=== PATIENT | female | born 1995 | race Caucasian/White ===

== ENCOUNTER 2021-07-06 17:35 | Emergency (ER) | payer BC ==
[~2021-07-06] VITALS: Ht 180.3 cm; Wt 103.2 kg
[2021-07-06 17:43] VITALS: TEMP 97.7
[2021-07-06 18:24] LABS: BASO % 0.2 % (0.0-2.0); EOS # 0.1 K/mm3 (0.0-0.7); GRAN # 6.3 K/mm3 (1.4-6.5); GRAN % 70.2 % (42.2-75.2); HEMATOCRIT 40.4 % (37.0-47.0); HEMOGLOBIN 13.7 g/dl (12.5-16.0); LYMPH % 22.2 % (20.0-51.0); MEAN CELL VOLUME 89 fl (80.0-100.0); MEAN CORPUSCULAR HEMOGLOBIN 30 pg (27-31); MEAN CORPUSCULAR HGB CONC 34 g/dl (33.0-37.0); MEAN PLATELET VOLUME 9.7 fl (7.4-10.4); MONO # 0.6 K/mm3 (0.1-0.6); MONO % 6.1 % (1.7-9.3); PLATELET COUNT 255 K/mm3 (130-400); RED BLOOD COUNT 4.56 M/mm3 (4.10-5.30); REDCELL DISTRIBUTION WIDTH-CV 12.2 % (11.5-14.5)
[2021-07-06 18:42] LABS: ALBUMIN 4.4 gm/dL (3.5-5.0); BILIRUBIN,TOTAL 0.4 mg/dL (0.2-1.2); CALCIUM 9.6 mg/dL (8.4-10.2); CREATININE, serum 0.97 mg/dL (0.57-1.11); POTASSIUM 4.1 mmol/L (3.5-4.5); TOTAL PROTEIN 7.5 gm/dL (6.2-8.1)
[2021-07-06 18:50] LABS: COLLECTION METHOD CLEAN CATCH
[2021-07-06 19:00] LABS: MUCOUS Present (NOT PRESENT); PH 6 (5-8); URINE APPEARANCE Cloudy (CLEAR/HAZY); URINE BACTERIA None Seen /hpf (NONE SEEN); URINE BILIRUBIN Negative (NEGATIVE); URINE BLOOD 3+ (NEGATIVE); URINE COLOR Yellow (YELLOW); URINE GLUCOSE Negative (NEGATIVE); URINE KETONE Negative (NEGATIVE); URINE LEUKOCYTE ESTERASE Trace (NEGATIVE); URINE NITRATE Negative (NEGATIVE); URINE PROTEIN(semi-quant) 2+ (NEGATIVE); URINE RBC >50 /hpf (0-2); URINE UROBILINOGEN Negative (NEGATIVE)
[2021-07-06 19:43] VITALS: BP 119/80; PULSE 80
== END 2021-07-06 19:43 | disposition home or self-care (01) ==
LOC: COL.ER 17:35
PROVIDERS: Emergency Medicine
DX: O20.9 Hemorrhage in early pregnancy, unspecified (principal); Z3A.01 Less than 8 weeks gestation of pregnancy
CPT/HCPCS: J7030

== ENCOUNTER 2021-11-28 12:08 | Emergency (ER) | payer BC ==
[~2021-11-28] VITALS: Ht 180.3 cm; Wt 104.5 kg
[2021-11-28 12:13] VITALS: TEMP 97.9
[2021-11-28 12:53] LABS: COLLECTION METHOD CLEAN CATCH
[2021-11-28 13:08] LABS: PH 6 (5-8); URINE APPEARANCE Hazy (CLEAR/HAZY); URINE BACTERIA Rare /hpf (NONE SEEN); URINE BILIRUBIN Negative (NEGATIVE); URINE BLOOD Negative (NEGATIVE); URINE COLOR Straw (YELLOW); URINE GLUCOSE Negative (NEGATIVE); URINE KETONE Negative (NEGATIVE); URINE LEUKOCYTE ESTERASE 1+ (NEGATIVE); URINE NITRATE Negative (NEGATIVE); URINE PROTEIN(semi-quant) Negative (NEGATIVE); URINE RBC 0-2 /hpf (0-2); URINE UROBILINOGEN Negative (NEGATIVE)
[2021-11-28 13:11] LABS: BASO % 0.2 % (0.0-2.0); EOS # 0.1 K/mm3 (0.0-0.7); EOS % 0.6 % (0.0-4.0); GRAN # 6.4 K/mm3 (1.4-6.5); GRAN % 76.4 % (42.2-75.2); HEMOGLOBIN 12.4 g/dl (12.5-16.0); LYMPH # 1.3 K/mm3 (1.2-3.4); LYMPH % 15.2 % (20.0-51.0); MEAN CELL VOLUME 91 fl (80.0-100.0); MEAN CORPUSCULAR HEMOGLOBIN 31 pg (27-31); MEAN CORPUSCULAR HGB CONC 34 g/dl (33.0-37.0); MEAN PLATELET VOLUME 10.1 fl (7.4-10.4); MONO # 0.6 K/mm3 (0.1-0.6); MONO % 7.2 % (1.7-9.3); PLATELET COUNT 201 K/mm3 (130-400); RED BLOOD COUNT 4.02 M/mm3 (4.10-5.30)
[2021-11-28 13:13] LABS: HEMATOCRIT 36.4 % (37.0-47.0)
--- NOTE | 2021-11-28 16:18 | NUR ---
SW responded to consult for this patient after no activity was detected. Patient reported to be 11 weeks . Patient states this is her second . Her first ended as a miscarriage as well. Patient states that FOB is not in the picture and she doesn't have a stong relationship with her mother . When asked if she has a support system she stated "no" but went on to explain that she does have close friends that "try to cheer me up when i have drama". Encouraged the patient to reach out to them and that they are her identified support system. Patient verbalized feelings of guilt and that this is her "sign that i'm not fit to be a mother". Emotional support given. Encouraged the patient to reach out to her OBGYN and about feelings and if she wanted to pursue testing to inquire about it. Patient is provided information for [facility] and encourged to reach out if she felt the need to seek mental health services. Patient interaction ended with her asking for a photo of the baby. Informed her that i would reach out the the team to find out. ABILIO notified of patient's request.
[2021-11-28 16:39] VITALS: BP 107/71; PULSE 60
== END 2021-11-28 16:45 | disposition home or self-care (01) ==
LOC: COL.ER 12:08
PROVIDERS: Physician Assistant
DX: O02.1 Missed abortion (principal); Z3A.11 11 weeks gestation of pregnancy